=== PATIENT | female | born 1945 ===

== ENCOUNTER → 2017-12-13 | Outpatient (CLI) | payer OTHER | END | disposition home or self-care (01) | LOC: LAB 11:09 | DX: Z80.3 Family history of malignant neoplasm of breast (principal); D68.4 Acquired coagulation factor deficiency; D51.1 Vitamin B12 deficiency anemia due to selective vitamin B12 malabsorption with proteinuria; D51.3 Other dietary vitamin B12 deficiency anemia; I10 Essential (primary) hypertension; E03.8 Other specified hypothyroidism; E78.4 Other hyperlipidemia; M17.11 Unilateral primary osteoarthritis, right knee; D50.8 Other iron deficiency anemias; D51.8 Other vitamin B12 deficiency anemias; D68.8 Other specified coagulation defects; E10.10 Type 1 diabetes mellitus with ketoacidosis without coma; I11.0 Hypertensive heart disease with heart failure; E78.2 Mixed hyperlipidemia; N39.0 Urinary tract infection, site not specified; D53.8 Other specified nutritional anemias; K76.1 Chronic passive congestion of liver; E04.0 Nontoxic diffuse goiter; D55.8 Other anemias due to enzyme disorders; N18.2 Chronic kidney disease, stage 2 (mild); I12.9 Hypertensive chronic kidney disease with stage 1 through stage 4 chronic kidney disease, or unspecified chronic kidney disease; E21.4 Other specified disorders of parathyroid gland; E55.9 Vitamin D deficiency, unspecified; R80.8 Other proteinuria ==

== ENCOUNTER 2018-04-19 11:16 | Outpatient (CLI) | payer OTHER | END 2018-04-19 11:32 | disposition home or self-care (01) | LOC: LAB 11:16 | DX: I11.0 Hypertensive heart disease with heart failure (principal); D53.8 Other specified nutritional anemias; N39.0 Urinary tract infection, site not specified; E78.2 Mixed hyperlipidemia; E11.9 Type 2 diabetes mellitus without complications; E04.0 Nontoxic diffuse goiter; N36.2 Urethral caruncle; N18.3 Chronic kidney disease, stage 3 (moderate); I12.9 Hypertensive chronic kidney disease with stage 1 through stage 4 chronic kidney disease, or unspecified chronic kidney disease; R80.9 Proteinuria, unspecified; E21.4 Other specified disorders of parathyroid gland; Z80.3 Family history of malignant neoplasm of breast; D68.4 Acquired coagulation factor deficiency; D51.1 Vitamin B12 deficiency anemia due to selective vitamin B12 malabsorption with proteinuria; D51.3 Other dietary vitamin B12 deficiency anemia; I10 Essential (primary) hypertension; E03.8 Other specified hypothyroidism; E78.4 Other hyperlipidemia; M17.11 Unilateral primary osteoarthritis, right knee; D50.8 Other iron deficiency anemias; D51.8 Other vitamin B12 deficiency anemias; E55.9 Vitamin D deficiency, unspecified; K90.89 Other intestinal malabsorption; R97.0 Elevated carcinoembryonic antigen [CEA]; Z12.31 Encounter for screening mammogram for malignant neoplasm of breast ==

== ENCOUNTER 2018-09-26 11:12 | Outpatient (CLI) | payer OTHER | END 2018-09-26 15:00 | disposition home or self-care (01) | LOC: LAB 11:12 | DX: Z80.3 Family history of malignant neoplasm of breast (principal); D68.4 Acquired coagulation factor deficiency; D51.1 Vitamin B12 deficiency anemia due to selective vitamin B12 malabsorption with proteinuria; D51.3 Other dietary vitamin B12 deficiency anemia; I10 Essential (primary) hypertension; E03.8 Other specified hypothyroidism; E78.49 Other hyperlipidemia; M17.11 Unilateral primary osteoarthritis, right knee; D50.8 Other iron deficiency anemias; D51.8 Other vitamin B12 deficiency anemias; K90.89 Other intestinal malabsorption; R97.0 Elevated carcinoembryonic antigen [CEA]; R97.8 Other abnormal tumor markers; N63 Unspecified lump in breast; D63.1 Anemia in chronic kidney disease; D68.0 Von Willebrand disease; N18.3 Chronic kidney disease, stage 3 (moderate); E11.9 Type 2 diabetes mellitus without complications; N39.0 Urinary tract infection, site not specified; K74.0 Hepatic fibrosis ==

== ENCOUNTER 2018-10-25 12:46 | Outpatient (CLI) | payer OTHER | END 2018-10-25 12:51 | disposition home or self-care (01) | LOC: LAB 12:46 | DX: D68.4 Acquired coagulation factor deficiency (principal); Z80.3 Family history of malignant neoplasm of breast; D51.1 Vitamin B12 deficiency anemia due to selective vitamin B12 malabsorption with proteinuria; D51.3 Other dietary vitamin B12 deficiency anemia; I10 Essential (primary) hypertension; E03.8 Other specified hypothyroidism; E78.49 Other hyperlipidemia; M17.11 Unilateral primary osteoarthritis, right knee; D50.8 Other iron deficiency anemias; D51.8 Other vitamin B12 deficiency anemias; K90.89 Other intestinal malabsorption; R97.0 Elevated carcinoembryonic antigen [CEA]; R97.8 Other abnormal tumor markers; D63.1 Anemia in chronic kidney disease; N18.3 Chronic kidney disease, stage 3 (moderate) ==

== ENCOUNTER 2019-04-07 11:16 | Outpatient (CLI) | payer OTHER | END 2019-04-07 15:00 | disposition home or self-care (01) | LOC: LAB 11:16 | DX: D50.8 Other iron deficiency anemias (principal); I10 Essential (primary) hypertension; R70.0 Elevated erythrocyte sedimentation rate; E55.9 Vitamin D deficiency, unspecified; N39.0 Urinary tract infection, site not specified; K74.0 Hepatic fibrosis; Z80.3 Family history of malignant neoplasm of breast; D68.4 Acquired coagulation factor deficiency; D51.1 Vitamin B12 deficiency anemia due to selective vitamin B12 malabsorption with proteinuria; D63.1 Anemia in chronic kidney disease; D51.3 Other dietary vitamin B12 deficiency anemia; E03.8 Other specified hypothyroidism; E78.49 Other hyperlipidemia; M17.11 Unilateral primary osteoarthritis, right knee; K90.89 Other intestinal malabsorption; R97.0 Elevated carcinoembryonic antigen [CEA]; R97.8 Other abnormal tumor markers ==

== ENCOUNTER 2019-10-12 10:56 | Outpatient (CLI) | payer OTHER | END 2019-10-12 11:00 | disposition home or self-care (01) | LOC: LAB 10:56 | DX: D50.8 Other iron deficiency anemias (principal); Z80.3 Family history of malignant neoplasm of breast; D68.4 Acquired coagulation factor deficiency; D51.1 Vitamin B12 deficiency anemia due to selective vitamin B12 malabsorption with proteinuria; N18.3 Chronic kidney disease, stage 3 (moderate); D63.1 Anemia in chronic kidney disease; D51.3 Other dietary vitamin B12 deficiency anemia; E03.8 Other specified hypothyroidism; E78.49 Other hyperlipidemia; M17.11 Unilateral primary osteoarthritis, right knee; D51.8 Other vitamin B12 deficiency anemias; K90.89 Other intestinal malabsorption; R97.0 Elevated carcinoembryonic antigen [CEA]; C22.9 Malignant neoplasm of liver, not specified as primary or secondary; E55.9 Vitamin D deficiency, unspecified; N39.0 Urinary tract infection, site not specified; N36.2 Urethral caruncle; E04.8 Other specified nontoxic goiter; I12.9 Hypertensive chronic kidney disease with stage 1 through stage 4 chronic kidney disease, or unspecified chronic kidney disease; R00.8 Other abnormalities of heart beat; E11.65 Type 2 diabetes mellitus with hyperglycemia; M1A.09X0 Idiopathic chronic gout, multiple sites, without tophus (tophi); R94.5 Abnormal results of liver function studies; K76.0 Fatty (change of) liver, not elsewhere classified ==